=== PATIENT | male | born 1965 | race African-American/Black ===

== ENCOUNTER 2024-11-10 08:33 | Emergency (ER) | payer OTHER ==
[~2024-11-10] VITALS: Ht 180.3 cm; Wt 102.0 kg
[2024-11-10 08:42] VITALS: O2SAT 100
[2024-11-10] MEDS: IBUPROFEN 600MG TABLET PO ONE (10:00)
[2024-11-10] MEDS: HYDROCODONE/ACETAMINOPHEN 5/325MG TABLET PO ONE (10:00)
[2024-11-10 10:15] LABS: BASOPHILS % 0.9 % (0.0-2.0); EOSINOPHILS % 3.4 % (0.0-5.0); HEMATOCRIT. 35.9 % (42.0-52.0); HEMOGLOBIN. 12.3 g/dL (14.0-18.0); LYMPHOCYTES % 18.6 % (20.0-50.0); MEAN PLATELET VOLUME 8.8 fl (7.4-10.4); MONOCYTES % 9.1 % (2.0-8.0); NEUTROPHILS % 68.0 % (40.0-76.0); PLATELET 206 x1000/uL (130-400); RED BLOOD CELL COUNT 3.87 mill/uL (4.7-6.1); RED CELL DISTRIBUTION WIDTH 12.1 % (11.6-14.6)
[2024-11-10 10:35] LABS: CREATININE 0.7 mg/dL (0.6-1.3)
[2024-11-10 10:36] LABS: UREA NITROGEN BLOOD 11 mg/dL (9-23)
[2024-11-10 12:49] LABS: CLARITY URINE CLEAR (CLEAR); COLOR URINE YELLOW (YELLOW); GLUCOSE URINE NEGATIVE (NEGATIVE); KETONES URINE NEGATIVE (NEGATIVE); LEUKOCYTE ESTERASE URINE NEGATIVE (NEGATIVE); NITRITE URINE NEGATIVE (NEGATIVE); OCCULT BLOOD URINE 2+ (NEGATIVE); PH URINE 5.5 (4.5-8.0); PROTEIN URINE TRACE (NEGATIVE); SPECIFIC GRAVITY URINE 1.029 (1.005-1.030); UROBILINOGEN URINE 1.0 E.U./dL (0.2-1.0)
[2024-11-10 13:25] LABS: MUCUS URINE TRACE /lpf (NONE/TRACE); SQUAMOUS EPITHELIAL CELL URINE RARE /lpf (RARE/1+)
[2024-11-10 13:26] LABS: RBC URINE 50-100 /hpf (0-2)
[2024-11-10 13:27] LABS: HYALINE CASTS URINE 0-5 /lpf; WBC URINE 0-2 /hpf (0-2)
[2024-11-10] MEDS ORDERED: TRAM50TA3 MT (13:31)
[2024-11-10] MEDS ORDERED: IBUP-2030 MT (13:31)
[2024-11-10 13:34] LABS: BACTERIA URINE 2+
[2024-11-10 14:46] VITALS: BP 138/80; PULSE 78; RESP 18; TEMP 36.8; O2SAT 100
== END 2024-11-10 15:16 | disposition home or self-care (01) ==
LOC: ER 08:33
DX: M47.22 Other spondylosis with radiculopathy, cervical region (principal); E78.00 Pure hypercholesterolemia, unspecified; I10 Essential (primary) hypertension; Z98.890 Other specified postprocedural states
CPT/HCPCS: 36415; 72100; 74176; 80048; 81003; 85025; 99284